=== PATIENT | male | born 2000 | race Caucasian/White ===

== ENCOUNTER 2020-12-18 22:49 | Emergency (ER) | payer OTHER ==
[~2020-12-18] VITALS: Ht 175.3 cm; Wt 84.8 kg
[2020-12-18 22:49] VITALS: BP 153/89
[2020-12-19 01:55] LABS: GC DNA AMPLIFICATION NEGATIVE (NEGATIVE)
== END 2020-12-19 01:44 | disposition home or self-care (01) ==
LOC: M ED 22:49
DX: R31.9 Hematuria, unspecified (principal); F17.200 Nicotine dependence, unspecified, uncomplicated; Z88.0 Allergy status to penicillin

== ENCOUNTER → 2021-02-12 | Outpatient (CLI) | payer OTHER ==
--- NOTE | 2021-02-12 16:51 | REP ---
INDICATION: HEMATURIA. COMPARISON: None. TECHNIQUE: Standard helical technique without intravenous or oral bowel preparatory contrast administration FINDINGS: The lung bases are clear. The liver, gallbladder, spleen, pancreas, adrenal glands, and kidneys are within normal limits. There is no nephroureterolithiasis, hydronephrosis, or hydroureter. There is no evidence of cholelithiasis. Limited evaluation of the bowel loops and the mesenteries show no gross abnormalities. There is no evidence of a mass or adenopathy. There is no evidence of free fluid or free air. There are no urinary bladder calcifications. Limited evaluation of the abdominal aorta and para-aortic regions show no abnormalities. Bone window technique throughout the examination shows the osseous structures to be within normal limits. IMPRESSION: Limited noncontrast enhanced CT examination of the abdomen and pelvis is within normal limits as described above. <Electronically signed by Pedrito Bhandari > 02/12/21 0826
== END ==
LOC: M RAD 15:37
PROVIDERS: ATTEND Physician Assistant
DX: R31.9 Hematuria, unspecified (principal)